=== PATIENT | female | born 1945 | race Caucasian/White ===

== ENCOUNTER 2023-11-26 13:14 | Emergency (ER) | payer OTHER ==
[~2023-11-26] VITALS: Ht 167.6 cm; Wt 56.7 kg
[2023-11-26] MEDS ORDERED: ACETAMINOPHEN 325 MG TABLET PO ONE (13:30)
[2023-11-26] MEDS ORDERED: IBUPROFEN 600 MG TABLET PO ONE (13:30)
[2023-11-26] MEDS ORDERED: ACETAMINOPHEN 325 MG TABLET ONE (14:16)
[2023-11-26] MEDS ORDERED: IBUPROFEN 600 MG TABLET ONE (14:17)
[2023-11-26] MEDS ORDERED: NAPR-1143 PO (14:56)
[2023-11-26 15:25] VITALS: BP 126/58; TEMP 98.2; O2SAT 96
== END 2023-11-26 15:26 | disposition home or self-care (01) ==
LOC: ER 13:23
DX: M25.562 Pain in left knee (principal); M25.552 Pain in left hip
CPT/HCPCS: 73502; 73564-TC